=== PATIENT | male | born 1985 | race Caucasian/White ===

== ENCOUNTER 2021-02-05 10:45 | Emergency (ER) | payer OTHER ==
[~2021-02-05] VITALS: Ht 182.9 cm; Wt 81.6 kg
[2021-02-05] MEDS ORDERED: CEFTRIAXONE 500 MG VIAL IM ONE (11:30)
[2021-02-05] MEDS ORDERED: DOXYCYCLINE HYCLATE 100 MG TABLET PO ONE (11:30)
[2021-02-05] MEDS ORDERED: DOXY100C2 PO (12:03)
[2021-02-05] MEDS ORDERED: HYDR-3980 PO (12:03)
[2021-02-05] MEDS ORDERED: DOXYCYCLINE HYCLATE 100 MG TABLET ONE (12:06)
[2021-02-05] MEDS ORDERED: CEFTRIAXONE 500 MG VIAL ONE (12:09)
[2021-02-05] MEDS ORDERED: LIDOCAINE HCL 2% 20 ML VIAL ONE (12:10)
[2021-02-05 12:15] LABS: *BILIRUBIN,URIN 1+ (NEGATIVE); *CLARITY,URINE CLEAR (CLEAR); *COLOR,URINE YELLOW (YELLOW); *KETONES,URINE 1+ (NEGATIVE); *UROBILINOGEN,URINE 0.2 E.U./dl (NORMAL); LEUKOCYTE ESTERASE ,URINE TRACE (NEGATIVE); NITRITE, URINE NEGATIVE (NEGATIVE); PH,URINE 6.5 (5.0-8.0); UGLUCOSE NEGATIVE (NEGATIVE)
[2021-02-05 12:18] LABS: *BLOOD, URINE TRACE INTACT (NEGATIVE)
[2021-02-05 12:25] LABS: BACTERIA,URINE NONE SEEN /HPF (NONE SEEN)
[2021-02-05 12:26] LABS: WBC,URINE 0-3 /HPF (0-3)
--- NOTE | 2021-02-05 12:45 | NUR ---
PT WAS EVALUATED BY DR DOYLE. PT WAS D/C'd TO HOME. D/C INSTRUCTIONS GIVEN TO THE PT BY DR DOYLE.
[2021-02-05 12:47] VITALS: BP 136/72
[2021-02-07 14:26] LABS: *GC NAA Negative; *TRIC.VAG. NAA Negative
== END 2021-02-05 12:48 | disposition home or self-care (01) ==
LOC: ER 10:45
DX: N45.1 Epididymitis (principal); N43.3 Hydrocele, unspecified
CPT/HCPCS: 76870; 81001; 87491; 96372; 99284; J0696; J3490; A4663